=== PATIENT | female | born 1965 | race African-American/Black ===

== ENCOUNTER 2017-12-24 21:47 | Emergency (ER) | payer OTHER ==
[~2017-12-24] VITALS: Ht 152.4 cm; Wt 90.7 kg
--- NOTE | 2017-12-24 23:43 | Diagnostic Imaging Report ---
EXAM: CHEST 2 VIEWS, PA and lateral INDICATION: Status post fall down stairs COMPARISON: None FINDINGS: LINES/TUBES: None LUNGS: No consolidations or edema. PLEURA: No effusions or pneumothorax. HEART AND MEDIASTINUM: Normal size and contour. BONES AND SOFT TISSUES: No acute findings. Lap band in proper orientation. IMPRESSION: No acute thoracic abnormality. Signed by: Dr. Shruti Luis M.D. on 12/24/2017 11:39 PM
--- NOTE | 2017-12-24 23:43 | Diagnostic Imaging Report ---
EXAM: SHOULDER RIGHT COMPLETE, AP internal and external rotation INDICATION: Fall down stairs, right shoulder pain COMPARISON: None FINDINGS: BONES: No acute fractures. JOINTS: No malalignment. SOFT TISSUES: Normal IMPRESSION: No right shoulder fracture or dislocation. Signed by: Dr. Shruti Luis M.D. on 12/24/2017 11:40 PM
--- NOTE | 2017-12-24 23:44 | Diagnostic Imaging Report ---
EXAM: HIP RIGHT 2-3 VW (+/- PELVIS) INDICATION: Fall down stairs, right hip pain COMPARISON: None FINDINGS: BONES: No acute fractures. JOINTS: Degenerative changes of the bilateral hips. SOFT TISSUES: Normal IMPRESSION: No pelvic or right hip fracture. Signed by: Dr. Shruti Luis M.D. on 12/24/2017 11:41 PM
--- NOTE | 2017-12-24 23:53 | Diagnostic Imaging Report ---
History: Fall, pain Comparison studies:None Technique: Axial images were obtained from the brain and cervical spine. Coronal and sagittal images reconstructed from the axial data. Intravenous contrast: None Findings: Head CT: Scalp/skull: No abnormalities. No fractures, blastic or lytic lesions. Brain sulci: Mildly prominent. Ventricles: Normal in size and configuration. No hydrocephalus. Extra-axial spaces: No masses. No fluid collections. Parenchyma: No abnormal densities. No masses, hemorrhage, acute or chronic cortical vascular insults. Sellar/suprasellar region: No abnormalities. Craniocervical junction: Patent foramen magnum. No Chiari one malformation. Cervical spine CT: Fractures: None. Soft tissues: No gross abnormalities. Atlantoaxial articulation: Intact. Alignment: Straightening of the normal lordosis. No scoliosis. Cervicomedullary junction: No abnormalities. Patent foramen magnum. Vertebrae: No infection or neoplasm. Degenerative changes: Patent canal and foramina. Incidental findings: None. Impression: Head CT: 1. No acute abnormality. Cervical spine CT: 1. No acute abnormalities. 2. Cannot exclude ligament, spinal cord and or vascular abnormalities on the basis of this examination. Signed by: DR Siva Georges M.D. on 12/24/2017 11:49 PM
== END 2017-12-25 02:57 | disposition home or self-care (01) ==
LOC: ER 21:47
DX: S00.03XA Contusion of scalp, initial encounter (principal); S40.011A Contusion of right shoulder, initial encounter; S40.021A Contusion of right upper arm, initial encounter; S70.01XA Contusion of right hip, initial encounter; W10.8XXA Fall (on) (from) other stairs and steps, initial encounter; Y92.008 Other place in unspecified non-institutional (private) residence as the place of occurrence of the external cause
CPT/HCPCS: 70450; 71046; 72125; 81025; 99283